=== PATIENT | male | born 1980 | race African-American/Black ===

== ENCOUNTER 2021-12-03 06:12 | Emergency (ER) | payer SELFPAY ==
[~2021-12-03] VITALS: Ht 170.2 cm; Wt 65.0 kg
--- NOTE | 2021-12-03 06:38 | PHYS DOC ---
General Adult EDM: Chief Complaint: NECK PAIN HPI: HPI: Patient is a 41 year old male presents for evaluation of neck pain. Patient arrived via ems. Patient states he woke up with neck pain on Thursday. States despite onset of pain he was able to drove from [place] to [place]. Prior to arrival patient was sleeping in his [place] and his neck pain increased and over the last 2 hours patient has had difficulty moving his entire body. Patient states he can not move both of his arms and legs. When asking the patient to localize where his pain is he states he can not move his arms to point where pain is located. When asking the patient to move his legs and feet he states he can not move them because of the pain in his neck. Patient denies any injuries or previous neck pain. He denies any drug or alcohol use. (JESSICA FERRERA DO) Review of Systems: Review of Systems: Review of systems: Constitutional symptoms- No fever, no chills. Eyes- No Discharge, No Visual Loss Respiratory symptoms- No shortness of breath, No wheezing, No Dyspnea on Exertion Cardiovascular Systems; No chest pain, No Palpitations, No syncope Gastrointestinal symptoms: NO abdominal pain, no nausea, no vomiting or diarrhea. Genitourinary symptoms: No dysuria. Musculoskeletal symptoms: No back pain No extremity pain. Positive neck pain NEUROLOGICAL Symptoms: No headache, no generalized weakness; Skin: No rash. (JESSICA FERRERA DO) Heart Score: C/O Chest Pain: N/A Risk Factors: Risk Factors: DM, Current or recent (<one month) smoker, HTN, HLP, family history of CAD, obesity. Risk Scores: Score 0 - 3: 2.5% MACE over next 6 weeks - Discharge Home Score 4 - 6: 20.3% MACE over next 6 weeks - Admit for Clinical Observation Score 7 - 10: 72.7% MACE over next 6 weeks - Early Invasive Strategies (JESSICA FERRERA DO) Physical Exam: PE: General: alert, no acute distress. Skin: warm, dry and intact, no erythema, no rash. HENT: bilateral external ears normal, oropharynx moist, nose normal. Head:: Normocephalic, atraumatic. Neck: Trachea midline. Eyes: EOMI, Normal conjunctiva, No drainage CARDIOVASCULAR: Regular rate and rhythm RESPIRATORY: No respiratory distress Back: C-spine no step off or deformities MUSCULOSKELETAL: no deformities of extremities, bilateral equal spray painter helper strength NEUROLOGICAL: Alert and noted to person, place and time. No facial droop, no flacid paralysis (JESSICA FERRERA DO) EKG: EKG: [] (JESSICA FERRERA DO) Radiology/Procedures: Radiology/Procedures: [] (JESSICA FERRERA DO) Impression: [id number] [place] [address] IMAGING REPORT Signed PATIENT: LUKE DUNCAN ACCOUNT: [id number] : 1980 LOCATION: ER AGE: 41 SEX: M EXAM STATUS: PRE ER ORD. PHYSICIAN: JESSICA FERRERA DO REASON: neck pain PROCEDURE: CT HEAD AND CERVICAL SPINE WO CT HEAD AND C-SPINE WO History: Reason: Head and neck pain / Spl. Instructions: / History: Comparison: None. Technique: Noncontrast CT imaging was performed of the head and cervical spine. Coronal and sagittal reconstructions were performed. Exposure: One or more of the following individualized dose reduction techniques were utilized for this examination: 1. Automated exposure control 2. Adjustment of the mA and/or kV according to patient size 3. Use of iterative reconstruction technique. Findings: Head CT: No intracranial hemorrhage. No mass effect. No hydrocephalus. Extra- axial spaces are unremarkable. Imaged orbits are unremarkable. Bilateral maxillary sinus mucous retention cysts. Mastoid air cells are clear. No acute calvarial fracture. Cervical spine CT: Straightening of the cervical spinal. Normal vertebral body height. No acute fracture. Mild degenerative disc changes most prominent C6-C7 with small disc extrusion. Mild C6-C7 right canal narrowing. Right C6-C7 neural foraminal narrowing. Soft tissues unremarkable. Impression: Head CT: 1. No acute intracranial abnormality. Cervical spine CT: 1. No acute fracture or subluxation of the cervical spine. 2. Cervical spondylosis most prominent C6-C7 with disc extrusion contributing to canal and neuroforaminal narrowing prominent on the right. MRI can further evaluate if persistent clinical concern. Electronically signed by: Jose Dc DO (12/03/2021 7:26 AM) [facility] DICTATED and SIGNED BY: JOSE DC DO DATE: 12/03/21 [id number] (NATHAN STEPHENS MD) Course & Med Decision Making: Course & Med Decision Making Pertinent Labs and Imaging studies reviewed. (See chart for details) [] Patient requesting MRI. Patient felt he was not getting adequate care and evaluation. Despite stating he could not move patient called 911 on his cell phone and re quested transfer to another hospital. C-collar placed. CT head and cervical spine ordered. Toradol ordered for pain. bicycle service technician took patient to radiology-- patient transferred from room A chair to wheel chair without assist. After CT imaging patient transferred self from wheel chair to room A chair without assist. Patient signed out to Dr Stephens-- disposition pending radiology and re- evaluation. (JESSICA FERREAR DO) Course & Med Decision Making I received this patient in signout with imaging pending. CT results show no fracture or subluxation, but does show C6-7 disc extrusion with potential canal and neuroforaminal narrowing on the right. On my reevaluation the patient is much more comfortable than described previously and was able to participate in a full neurologic assessment. He had intact strength in his upper and lower extremities, specifically with 5/5 strength bilaterally in: Shoulder abduction Elbow flexion Elbow extension Wrist extension Kindergartner strength Hip flexion Hip adduction Knee extension Knee flexion Plantar/dorsiflexion of the ankle Dorsiflexion of the great toe In addition he was able to ambulate with a steady gait to the restroom. Given his intact neuro exam, I do not feel that he requires an MRI at this time. Discussed conservative treatment with NSAIDs and provided with referral to neurosurgery as an outpatient. I expressed to him that if he has weakness in his extremities then he would need to return to the emergency department immediately for reevaluation. He expressed understanding. (NATHAN STEPHENS MD) Dragon Disclaimer: Dragon Disclaimer: This electronic medical record was generated, in whole or in part, using a voice recognition dictation system. (JESSICA FERRERA DO) Departure Departure Impression: Primary Impression: Neck pain Additional Impression: Herniation of intervertebral disc at C6-C7 level Disposition: 01 HOME / SELF CARE / HOMELESS Condition: STABLE Referrals: DASHAWN BRIDGES MD Patient Instructions: Herniated Disk Additional Instructions: The initial treatment for bulging disc is ibuprofen. Please take as below for the next 1-2 weeks or until your symptoms improve. -Ibuprofen 600 mg every 6 hours. Take with food. In addition you can take Tylenol. -Tylenol 1000 mg every 6 hours (do not exceed 4000 mg in one day) Please call the office of Dr. Dashawn Bridges, our vehicle care specialist, to schedule a follow up appointment. If you develop weakness in your arms or legs you need to return to an emergency department immediately for reevaluation. JESSICA FERRERA I DO Dec 03, 2021 06:38 NATHAN STEPHENS MD Dec 03, 2021 08:45
[2021-12-03] MEDS ORDERED: KETOROLAC 60 MG/2 ML VIAL. IM ONE (06:45)
--- NOTE | 2021-12-03 07:29 | RAD ---
CT HEAD AND C-SPINE WO History: Reason: Head and neck pain / Spl. Instructions: / History: Comparison: None. Technique: Noncontrast CT imaging was performed of the head and cervical spine. Coronal and sagittal reconstructions were performed. Exposure: One or more of the following individualized dose reduction techniques were utilized for thi s examination: 1. Automated exposure control 2. Adjustment of the mA and/or kV according to patient size 3. Use of iterative reconstruction technique. Findings: Head CT: No intracranial hemorrhage. No mass effect. No hydrocephalus. Extra-axial spaces are unrema rkable. Imaged orbits are unremarkable. Bilateral maxillary sinus mucous retention cysts. Mastoid air cells a re clear. No acute calvarial fracture. Cervical spine CT: Straightening of the cervical spinal. Normal vertebral body height. No acute fracture. Mild degenerative disc changes most prominent C6-C7 with small disc extrusion. Mild C6-C7 right canal narrowing. Right C6-C7 neural foraminal narrowing. Soft tissues unremarkable. Impression: Head CT: 1. No acute intracranial abnormality. Cervical spine CT: 1. No acute fracture or subluxation of the cervical spine. 2. Cervical spondylosis most prominent C6-C7 with disc extrusion contributing to canal and neurofora ralph narrowing prominent on the right. MRI can further evaluate if persistent clinical concern. Electronically signed by: Jose Dc DO (12/03/2021 7:26 AM) [facility]
[2021-12-03] MEDS ORDERED: KETOROLAC 60 MG/2 ML VIAL. ONE (07:35)
[2021-12-03] MEDS ORDERED: IBUPROFEN 200 MG TABLET. PO ONE (08:45)
[2021-12-03] MEDS ORDERED: ACETAMINOPHEN 500 MG TABLET PO ONE (08:45)
[2021-12-03 09:43] VITALS: BP 124/76
== END 2021-12-03 10:32 | disposition home or self-care (01) ==
LOC: ER 06:12
DX: M54.2 Cervicalgia (principal); M50.223 Other cervical disc displacement at C6-C7 level; R51.9 Headache, unspecified
CPT/HCPCS: 70450; 72125; 96372; 99284; J1885